=== PATIENT | male | born 1930 | race Caucasian/White ===

== ENCOUNTER 2016-03-29 07:09 | Inpatient (IN) ==
--- NOTE | 2016-03-29 07:53 | Emergency Department Note ---
Gianfranco Alcocer Meredith, am scribing for, and in the presence of, Jalen Aldridge MD 07: 50. Oly Alcocer James D, MD, personally performed the services described in this documentation, ascribed by Cherie Medel in my presence, and it is both accurate and complete 751 . Arrival - Arrival Chief Complaint: Urogenital - Male Stated Complaint: passing blood painful urination ED Nursing Triage Note: Pt c/o blood in urine with painful urination since yesterday. Mode of Arrival: Ambulatory Limitations: No Limitations Source: Patient, Old Records Reviewed, RN Notes Reviewed Time Seen by Provider: 03/29/16 07:21 - History of Present Illness HPI Narrative: Pt is an 85 y/o white male reporting to the ED with c/o dysuria, hematuria, nausea, and vomiting which onset yesterday. He denies any abdominal pain, fever , urinary retention, or passing clots. Family states that pt had a similar episode back in November and was diagnosed with a kidney infection. Pt states he called Dr. Sandra offive yesterday and had prescription for Levaquin called in. He had begun the Levaquin but states he is no better. He states that he was told by Dr. Sandra to come to the ED to be admitted. Pt has a history of HTN, HLD, and BPH. Onset (ago): day(s) Allergies/Adverse Reactions: Allergies Allergy/AdvReac Type Severity Reaction Status Date / Time Pork Allergy Verified 03/29/16 18:06 Home Medications: Home Medications Medication Instructions Recorded Confirmed Type Lisinopril 10 mg PO BID 11/14/15 03/29/16 History Simvastatin [Zocor] 20 mg PO BEDTIME 11/14/15 03/29/16 History Levofloxacin Tab [Levaquin Tab] 500 mg PO DAILY 03/29/16 03/29/16 History Acetaminophen Tab [Tylenol Tab] 650 mg PO Q4H PRN #0 tablet 03/31/16 Rx Dutasteride [Avodart] 0.5 mg PO DAILY capsule 03/31/16 Rx Review of System - Review of System 12 point system: reviewed and no additional remarkable complaints except as stated - Review of System Constitutional: Present: as per HPI. Absent: fever Gastrointestinal: Present: as per HPI, nausea, vomiting. Absent: abdominal pain Genitourinary male: Present: as per HPI, dysuria, hematuria, other (No urinary retetion or passing clots) Medical,Surgical,& Family Hx - Medical History Cardio: History of: Hypertension Endocrine: History of: Dyslipidemia Genitourinary: History of: Prostate Problems (BPH) - Social History Smoking Status: Never smoker Exam Physical Examination: GENERAL: This is a well-nourished, well-developed white male in no apparent distress. VITAL SIGNS: Temperature: 97.5, Pulse: 77, Respirations: 18, Blood pressure: 160 /62, O2 Saturation: 97 HEENT: Head is normocephalic and atraumatic. Pupils are equally round and reactive to light. Extraocular movement are intact. Oropharynx is benign with moist mucous membranes. NECK: Neck is soft and supple without tenderness. There are no masses. There is no lymphadenopathy. LUNGS: Lungs are clear to auscultation bilaterally. Chest rises symmetrically. There is no chest wall tenderness. CV: Heart is regular rate and rhythm without murmurs, rubs, or gallops. ABDOMEN: Abdomen is soft, non-tender to palpation. There are no abnormal masses palpated. There is no organomegaly. Bowel sounds are present and active. SKIN: Skin is warm and dry. No rash. EXTREMITIES: Patient has full range of motion without tenderness. There is no pedal edema. NEUROLOGIC: Awake, alert, and oriented x4. Cranial nerves II through XII are grossly intact. There are no motorsensory deficits. PSYCHIATRIC: Normal affect. Normal mood. Vital Signs: Vital Signs Temperature 97.5 F L 03/31/16 12:00 Pulse Rate 65 03/31/16 12:00 Respiratory Rate 18 03/31/16 12:00 Blood Pressure 139/71 03/31/16 12:00 O2 Sat by Pulse Oximetry 96 03/31/16 12:00 Course - Consultations Consultation #1: Discussed with Dr. Leodan Sandra. Time: 09:42 Results - Labs CBC & BMP: 03/30/16 06:08 03/30/16 06:08 Lab Results: I have reviewed the patients labs Labs: Laboratory Tests 03/29/16 07:33 Urine pH 7.0 Ur Specific Temperance 1.012 Urine RBC 76816 Urine WBC 231 Disposition Clinical Impression: Hematuria, BPH (benign prostatic hyperplasia) Case discussed with: patient Disposition: Still a Patient Condition: Stable New Prescriptions: Rx's Medication Instructions Recorded Acetaminophen Tab [Tylenol Tab] 650 mg PO Q4H PRN #0 tablet 03/31/16 Dutasteride [Avodart] 0.5 mg PO DAILY capsule 03/31/16
[2016-03-29 07:55] LABS: Apearance,Urine CLOUDY (Clear); Bilirubin,Urine Negative (Negative); Blood, Urine Moderate mg/dL (Negative); Glucose,Urine (UA) Negative (Negative); Ketones,Urine 20 mg/dL (Negative); Nitrite,Urine Negative (Negative); Protein,Urine 100 MG/DL; RBC,Urine 77098 /HPF (0-4); Urine Specific Gravity 1.012 (1.001-1.035); WBC,Urine 231 /HPF (0-6)
[2016-03-29 07:56] LABS: Urine Color Red (Yellow)
[2016-03-29 07:57] LABS: Bacteria,Urine Occasional /HPF (Few)
[2016-03-29 10:05] LABS: Basophils % 0.1 % (0.0-0.8); Eosinophils % 0.1 % (0.00-10.9); Hematocrit 32.8 VOL% (42.0-52.0); Hemoglobin 11.4 GM/DL (14.0-18.0); Immature Granulocytes % 0.4 %; Immature Granulocytes Absolute 0.04 #; Lymphocytes # 1.4 10*3/uL (1.4-4.0); Lymphocytes % 14.6 % (21.2-54.2); Mean Corpuscular HGB Conc 34.8 GM/DL (32-36); Mean Corpuscular Hemoglobin 31 PG (27-34); Mean Corpuscular Volume 88.2 FL (87-102); Mean Platelet Volume 9.9 FL (9.6-12.0); Monocytes # 0.5 10*3/uL (0.11-0.8); Monocytes % 5.4 % (1.7-12.7); Neutrophils # 7.5 10*3/uL (1.4-7.4); Neutrophils % 79.4 % (38.7-73.9); Platelet Count 234 10*3/uL (130-400); Red Blood Count 3.72 10*6/uL (3.8-5.5); Red Cell Distribution Width 11.9 % (9.3-17.3); White Blood Count 9.4 10*3/uL (4.5-13.71)
[2016-03-29 10:17] LABS: INR 1.1; PT Patient Result 11.2 SECS; Partial Thromboplastin Time 27.8 SECS (0-40)
[2016-03-29 10:29] LABS: Osmolality,Calculated 259.1 MOS/KG (273-304); Potassium 3.4 MMOL/L (3.5-5.1)
[2016-03-29] MEDS ORDERED: MEPERIDINE 50 MG/1 ML VIAL ONE (11:32)
[2016-03-29] MEDS ORDERED: PROMETHAZINE 25 MG/1 ML VIAL ONE (11:32)
[2016-03-29] MEDS ORDERED: MEPERIDINE 50 MG/1 ML VIAL IV STA (11:37)
[2016-03-29] MEDS ORDERED: PROMETHAZINE 25 MG/1 ML VIAL IM STA (11:39)
[2016-03-29] MEDS ORDERED: ONDANSETRON 4 MG/2 ML VIAL ONE (12:09)
[2016-03-29] MEDS ORDERED: HYDROmorphone 2 MG/1 ML VIAL ONE (12:09)
--- NOTE | 2016-03-29 12:56 | Urology History & Physical ---
Assessment and Plan - Time spent with patient Time spent with patient: Greater than 30 minutes (1) BPH (benign prostatic hyperplasia) Status: Acute Assessment and plan: Provider: Nugent drainage. Hand irrigated when necessary he has some electrolyte abnormalities need to be corrected. I will order a CT urogram he will need cystoscopy before he leaves the hospital. We will consult medicine. Current Visit: Yes (2) Hematuria Status: Acute Current Visit: Yes 12 point system: reviewed and no additional remarkable complaints except as stated History of Present Illness Chief complaint: hematuria History of present illness: Mr. Wilson is a 85 year old male who is well known to me. She had history of gross hematuria in the past. He developed the gross hematuria yesterday and she is and we got him off his feet. It became worse he presented himself to emergency room. I was involved in surgeries and Dr. Burt had come place a catheter. Apparently he had a stricture and had to be dilated. Now has a 20 [place] Nugent. In questioning the family he has not been taking his Avodart-like I thought he was. That explains hematuria. He has a very, very large prostate. He was found to have some electrolyte abnormalities with sodium of 128 and a potassium 3.4. He is being admitted to control the hematuria and a consul medicine for his electrolyte abnormalities. Home Medications Medication Instructions Recorded Confirmed Type Lisinopril 10 mg PO BID 11/14/15 03/29/16 History Simvastatin [Zocor] 20 mg PO BEDTIME 11/14/15 03/29/16 History Phenazopyridine HCl [Azo Urinary 97.5 mg PO Q12H PRN 03/29/16 03/29/16 History Pain Relief] Allergies Allergy/AdvReac Type Severity Reaction Status Date / Time No Known Allergies Allergy Verified 11/14/15 08:14 Medical,Surgical,& Family Hx - Medical History Cardio: History of: Hypertension Endocrine: History of: Dyslipidemia Genitourinary: History of: Prostate Problems (BPH), Problems (multiple episodes of gross hematuria) - Social History Smoking Status: Never smoker Exam - Constitutional Vitals: Period Temp Pulse Resp BP Sys/Canales Pulse Ox Last 24 Hr 97.5 F-97.5 F 64-77 18-20 160-164/62-70 96-97 General appearance: no acute distress - Head Head exam: Present: normal inspection - Respiratory Respiratory exam: Present: clear to auscultation bilaterally - Cardiovascular Cardiovascular exam: Present: regular rate and rhythm - GI/Abdominal GI/Abdominal exam: Present: normal bowel sounds, tenderness (the suprapubic) - Genitourinary Genitourinary: scrotum without lesions, cysts, edema or rash, penis with no lesions or discharge (Nugent catheter in place), diffusely enlarged prostate without tenderness Results - Labs CBC & BMP: 03/29/16 09:51 03/29/16 09:51
[2016-03-29] MEDS ORDERED: HYDROmorphone 2 MG/1 ML VIAL IV STA (13:09)
[2016-03-29] MEDS ORDERED: ONDANSETRON 4 MG/2 ML VIAL IV STA (13:10)
--- NOTE | 2016-03-29 13:23 | Urology Progress Note ---
Urology - PN: Subj Interval history: This 85-year-old white male is a patient of Dr. Sandra and was seen for him is because he was tied up in surgery. The patient was seen in urinary retention with gross hematuria in the ER personnel were not able to pass a Nugent catheter. The patient was given 25 mg of Phenergan and 50 mg of Demerol IV. The patient was then dilated to 22 Kazakh with mello and Boaz followers. 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 This was then removed and a 20 Nugent was inserted and a large amount of dark urine was drained. This was left on gravity drainage and the patient remained in the emergency room until seen by Dr. Sandra. Exam - Constitutional Vitals: Period Temp Pulse Resp BP Sys/Canales Pulse Ox Last 24 Hr 97.5 F-97.5 F 64-77 18-20 160-164/62-70 96-97 Results - Labs CBC & BMP: 03/29/16 09:51 03/29/16 09:51
[2016-03-29] MEDS ORDERED: DUTASTERIDE 0.5 MG CAPSULE PO SCH (13:30)
--- NOTE | 2016-03-29 13:34 | Hospitalist Consult Note ---
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 Gross hematuria recurrent. Current Visit: Yes (2) Hypertension Status: Chronic Assessment and plan: Minimal medical therapy, current electrolytes likely reflect overnight emesis. Current Visit: Yes History of Present Illness - Consult Narrative History of present illness: Mr. Wilson is a 85 year old male chronic prostatism with remote TURP, had developed gross hematuria in November. Had not complied with use of Avodart, and yesterday developed suprapubic pain, voiding difficulty with recurrent gross hematuria. He is current residually sedated after placement of Nugent catheter requiring dilatation of stricture for passage. Family is available. He is generally in good health independent treated only for hypertension and elevated cholesterol level. With this episode he has not been able to tolerate oral intake, but typically eats well, and has had emesis. CC: - Home Medications and Allergies Home Medications: Home Medications Medication Instructions Recorded Confirmed Type Lisinopril 10 mg PO BID 11/14/15 03/29/16 History Simvastatin [Zocor] 20 mg PO BEDTIME 11/14/15 03/29/16 History Phenazopyridine HCl [Azo Urinary 97.5 mg PO Q12H PRN 03/29/16 03/29/16 History Pain Relief] Allergies/Adverse Reactions: Allergies Allergy/AdvReac Type Severity Reaction Status Date / Time No Known Allergies Allergy Verified 11/14/15 08:14 Medical,Surgical,& Family Hx - Medical History Cardio: History of: Hypertension (10 years) Endocrine: History of: Dyslipidemia Genitourinary: History of: Prostate Problems (BPH, history of TURP), Problems (multiple episodes of gross hematuria) - Surgical History Reproductive Surgeries: Surgical HX of;: Prostate Surgery - Social History Smoking Status: Never smoker ROS unobtainable: other (due to procedure related sedation) Exam - Constitutional Vitals: Period Temp Pulse Resp BP Sys/Canales Pulse Ox Last 24 Hr 97.5 F-97.5 F 64-77 18-20 160-164/62-70 96-97 General appearance: normal weight - Neck Neck exam: Absent: lymphadenopathy, thyromegaly - Respiratory Respiratory exam: Present: clear to auscultation bilaterally. Absent: rales, rhonchi, wheezes - Cardiovascular Cardiovascular exam: Present: regular rate and rhythm, systolic murmur (6 apical murmur) - GI/Abdominal GI/Abdominal exam: Present: normal bowel sounds. Absent: ascites, distended, mass, organomegaly, tenderness - Extremities Exam Extremities exam: Absent: edema - Neurological Exam Neurological exam: Present: other (sedated) Results - Labs CBC & BMP: 03/29/16 09:51 03/29/16 09:51 Labs: Hemoglobin 12.6 and creatinine 1.3 in November 2015
[2016-03-29] MEDS ORDERED: PHENAZOPYRIDINE 95 MG TABLET PO PRN (15:33)
[2016-03-29] MEDS ORDERED: PROMETHAZINE 25 MG/1 ML VIAL IM PRN (15:33)
[2016-03-29] MEDS ORDERED: HYDROmorphone 2 MG/1 ML VIAL IV PRN (15:33)
[2016-03-29] MEDS ORDERED: ACETAMINOPHEN 325 MG TABLET PO PRN (15:33)
[2016-03-29] MEDS ORDERED: ONDANSETRON 4 MG/2 ML VIAL IV PRN (15:33)
[2016-03-29] MEDS: SODIUM CHLORIDE 0.45% 1,000 ML IV SCH (16:12)
[2016-03-29] MEDS: DUTASTERIDE 0.5 MG CAPSULE PO SCH (16:24)
[2016-03-29] MEDS: LISINOPRIL 10 MG TABLET PO SCH (21:10)
[2016-03-29] MEDS: SIMVASTATIN 20 MG TABLET PO SCH (21:10)
[2016-03-30] MEDS: SODIUM CHLORIDE 0.45% 1,000 ML IV SCH ×2 (05:47→18:12)
[2016-03-30 06:46] LABS: Basophils % 0.1 % (0.0-0.8); Eosinophils # 0.1 10*3/uL (0.0-0.87); Eosinophils % 0.5 % (0.00-10.9); Hematocrit 29.4 VOL% (42.0-52.0); Immature Granulocytes % 0.4 %; Immature Granulocytes Absolute 0.04 #; Lymphocytes # 1.7 10*3/uL (1.4-4.0); Lymphocytes % 15.7 % (21.2-54.2); Mean Corpuscular Hemoglobin 31 PG (27-34); Mean Corpuscular Volume 90.7 FL (87-102); Mean Platelet Volume 10.1 FL (9.6-12.0); Monocytes # 0.9 10*3/uL (0.11-0.8); Neutrophils # 7.8 10*3/uL (1.4-7.4); Neutrophils % 74.3 % (38.7-73.9); Platelet Count 195 10*3/uL (130-400); Red Blood Count 3.24 10*6/uL (3.8-5.5); Red Cell Distribution Width 12.2 % (9.3-17.3); White Blood Count 10.5 10*3/uL (4.5-13.71)
[2016-03-30 07:16] LABS: Calcium 8.4 MG/DL (8.5-10.1); Osmolality,Calculated 271.1 MOS/KG (273-304); Potassium 3.9 MMOL/L (3.5-5.1)
[2016-03-30] MEDS ORDERED: LIDOCAINE 2% TOP JELLY 20 ML VIAL INTRAURETH ONE (08:36)
--- NOTE | 2016-03-30 08:44 | CT Report ---
CT urogram Indication: Hematuria. CT ABDOMEN AND PELVIS WITH AND WITHOUT CONTRAST, UROGRAM PROTOCOL DLP: 1168 mGy*cm Comparison: 02/03/14 Technique: Axial CT images of the abdomen and pelvis were obtained pre-and post IV contrast administration. Omnipaque 350, 100 cc. Post contrast imaging was performed during the arterial phase, venous phase and urinary excretory phase. 3-d MIPS and multiplanar reformatted images of the urinary collecting system were provided. Urinary System: Precontrast imaging shows persistent IV contrast in the urinary collecting system, diluted. No urolithiasis shown. 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 Urinary bladder is decompressed with a Nugent catheter, and there is hyperdense material in the bladder consistent with old contrast on the tmd teacher assistant series. Bladder wall is thickened. 13 mm hypodensity arising from the left kidney and a 14 mm hypodensity arising from the right kidney are fluid density and do not enhance. Similar fluid density cyst at the upper pole left kidney is present as well. No enhancing renal mass. Prompt bilateral urinary excretion noted on the delayed images. Ureters are smoothly contoured. Multiple bladder diverticula are shown on the excretion series. The prostate is severely enlarged measuring 73 x 56 mm with a central defect similar to the previous exam. Abdomen: Mild cardiomegaly noted. Interstitial scarring lung bases is more pronounced than previous. Liver, gallbladder, spleen, pancreas and adrenal glands are unremarkable. No bowel obstruction. Pelvis: Diverticulosis of the colon noted, without active diverticulitis. No lymphadenopathy, free fluid or free air. Patient is osteopenic with degenerative changes of lumbar spine. Impression: 1. Since 2013, no urolithiasis, renal mass, or ureter mass has developed. 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 3 enlarging renal cysts are present, 2 on the left kidney and one on the right, largest 14 mm. Severe prostatism with central defect suggesting prior TURP, and numerous bladder diverticulum appear stable. Nugent catheter noted with bladder wall thickening. Suspect cystitis. 2. Diverticulosis without diverticulitis. 3. 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 4. Cardiomegaly. PROCEDURE INTERPRETED AT [facility] DEPARTMENT OF RADIOLOGY Final Report Signed by: Raúl Squires M.D.
[2016-03-30] MEDS ORDERED: LISINOPRIL 10 MG TABLET PO SCH (09:00)
--- NOTE | 2016-03-30 09:25 | Operative Note ---
Date of procedure: 03/30/16 Pre-op diagnosis: BPH, gross hematuria Post-op diagnosis: same Procedure: 85-year-old gentleman is well known to me previous TUR. Gross hematuria massively enlarged prostate he was supposed to be taking Avodart but wasn't. And now he is admitted the hospital had to be dilated put a catheter in. His urine cleared up. CT urogram shows no stones or masses in the kidney. There are a few cysts. Lower tract shows some clot in his bladder but nothing suggesting cancer and a massively enlarged prostate with TUR defect is now brought in for cystoscopy. Patient brought to endoscopy prepared and draped using sterile manner. Xylocaine jelly recent bladder for anesthesia. Flexible 16 [place]i cystourethroscope specimen admission. Urethra reveals a stricture in the bulbar urethra. Prostate is open. Bladder neck is open. Bladder shows a few old clots no active bleeding. There are some veins in the prostate that one of bleed. Bladder is clear. There are some diverticulum in the bladder and ureteral orifices normal clear efflux. The cystoscope removed. [place] sounds were used to dilate the urethra to 20 [place]i. Patient tolerates procedure well. I plan leaving the Nugent out. He was sent to his room in good condition. Anesthesia: local Surgeon / Physician: Leodan Sandra Estimated blood loss: other (5cc) Specimens: none sent Condition: stable Disposition: floor Results - Labs CBC & BMP: 03/30/16 06:08 03/30/16 06:08 Discharge Plan - Discharge Medications No Action Simvastatin [Zocor] 20 mg PO BEDTIME Lisinopril 10 mg PO BID Phenazopyridine HCl [Azo Urinary Pain Relief] 97.5 mg PO Q12H PRN PRN Reason: URINARY PAIN Levofloxacin Tab [Levaquin Tab] 500 mg PO DAILY - Follow Up or Referral - Forms/Instructions
[2016-03-30] MEDS: DUTASTERIDE 0.5 MG CAPSULE PO SCH (10:28)
[2016-03-30] MEDS: LISINOPRIL 10 MG TABLET PO SCH ×2 (10:28→20:31)
[2016-03-30] MEDS: LEVOFLOXACIN 500 MG TABLET PO SCH (10:28)
--- NOTE | 2016-03-30 10:32 | Hospitalist Progress Note ---
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 Gross hematuria recurrent. Current Visit: Yes (2) Hypertension Status: Chronic Assessment and plan: Minimal medical therapy, electrolytes self corrected with cessation of emesis. Current Visit: Yes Hospitalist: Subjective Interval history: 85 yo male presenting with obstructive urinary symptoms with gross hematuria. Required urethral dilatation for Nugent passage yesterday and earlier today had cystoscopy. CT shows patient urologic picture stable and no evidence of malignancy etc. Nugent removed and patient voiding. Feels well this morning and vitals stable overnight. Exam - Constitutional Vitals: Period Temp Pulse Resp BP Sys/Canales Pulse Ox Last 24 Hr 97.3 F-99.5 F 53-88 17-20 101-162/47-87 92-98 General appearance: normal weight - Respiratory Respiratory exam: Present: clear to auscultation bilaterally. Absent: rales, rhonchi, wheezes - Cardiovascular Cardiovascular exam: Present: regular rate and rhythm - GI/Abdominal GI/Abdominal exam: Present: normal bowel sounds. Absent: tenderness - Neurological Exam Neurological exam: Present: alert, oriented X3 Results - Labs CBC & BMP: 03/30/16 06:08 03/30/16 06:08
[2016-03-30] MEDS: SIMVASTATIN 20 MG TABLET PO SCH (20:32)
[2016-03-31] MEDS: LISINOPRIL 10 MG TABLET PO SCH (09:30)
[2016-03-31] MEDS: LEVOFLOXACIN 500 MG TABLET PO SCH (09:30)
[2016-03-31] MEDS: DUTASTERIDE 0.5 MG CAPSULE PO SCH (09:30)
[2016-03-31] MEDS: SODIUM CHLORIDE 0.45% 1,000 ML IV SCH (09:31)
--- NOTE | 2016-03-31 11:00 | Hospitalist Progress Note ---
<Aileen Clark N - Last Filed: 03/31/16 10:55> Assessment and Plan (1) BPH (benign prostatic hyperplasia) Status: Acute Assessment and plan: managed by Dr. Sandra, post urethral dilation Current Visit: Yes (2) Hematuria Status: Acute Assessment and plan: resolved, IV fluids D/C, continue good PO hydration Current Visit: Yes (3) Hypertension Status: Chronic Assessment and plan: managed well with home BP meds cleared for discharge from Hospital medicine Current Visit: Yes Hospitalist: Subjective Interval history: Mr. Wilson states he is doing much better this morning. he is voiding without difficulty, without pain and no hematuria noted in urinal. He has had about 800cc of sandy urine out this morning. He states he wants to go home. that will be up to Dr. Sandra. His IV was lost this morning, we will hold off on restarting this and D/C his IV fluids but have encouraged him to continue pushing PO hydration with water. He is agreeable. His BP is stable this morning, labs WNL and afebrile. He is cleared from discharge from our standpoint. Exam - Constitutional Vitals: Period Temp Pulse Resp BP Sys/Canales Pulse Ox Last 24 Hr 97.6 F-99.2 F 70-79 16-20 115-136/45-74 90-97 General appearance: no acute distress - Head Head exam: Present: normal inspection, normocephalic - Eye Eye exam: Present: EOMI. Absent: scleral icterus Pupils: Present: SAIRA, normal accommodation - ENT ENT exam: Present: normal exam, normal oropharynx - Neck Neck exam: Present: normal inspection. Absent: lymphadenopathy - Respiratory Respiratory exam: Present: clear to auscultation bilaterally. Absent: wheezes - Cardiovascular Cardiovascular exam: Present: regular rate and rhythm. Absent: tachycardia - GI/Abdominal GI/Abdominal exam: Present: normal bowel sounds, soft. Absent: tenderness - Extremities Exam Extremities exam: Present: normal inspection, full ROM. Absent: edema - Back Exam Back exam: Present: normal inspection. Absent: muscle spasm - Neurological Exam Neurological exam: Present: alert, oriented X3 - Psychiatric Psychiatric exam: Present: normal affect, normal mood - Skin Skin exam: Present: normal color, warm, dry Results - Labs CBC & BMP: 03/30/16 06:08 03/30/16 06:08 Lab Results: I have reviewed the past 24 hour labs <AkhilMagia R - Last Filed: 03/31/16 13:49> Assessment and Plan (1) BPH (benign prostatic hyperplasia) Status: Acute Assessment and plan: continue medication Current Visit: Yes (2) Hypertension Status: Chronic Assessment and plan: Controlled Current Visit: Yes (3) Hematuria Status: Acute Assessment and plan: Agree with above Current Visit: Yes Hospitalist: Subjective Interval history: Patient seen and examined. Progress note reviewed and agree with findings. Patient going home today and blood pressure controlled Exam - Constitutional Vitals: Period Temp Pulse Resp BP Sys/Canales Pulse Ox Last 24 Hr 97.5 F-99.2 F 65-77 16-18 117-139/45-71 90-97 Results - Labs CBC & BMP: 03/30/16 06:08 03/30/16 06:08
[2016-03-31 12:30] VITALS: BP 139/71
--- NOTE | 2016-03-31 13:38 | Discharge Summary ---
Hospital Course - Hospital Course Hospital Course: Patient is well known to me. Developed gross hematuria was seen in the emergency room. I previously given him Levaquin. He required urethral dilatation and a catheter was placed. His hematuria resolved with Nugent drainage and a 5 alpha reductase treatment. His urine is clear. I cystoscoped him yesterday. The bladder is normal. We dilated his stricture again. CT scan showed normal upper tracts. His maximal hospital benefit will be discharged. He tells me that he will take his Avodart. Minimal activity. The days and then he may resume normal activity. He will call me for any problems. - Time spent with patient Time with patient DS: Greater than 30 minutes Diagnosis - Discharge Diagnosis (1) BPH (benign prostatic hyperplasia) Status: Acute (2) Hematuria Status: Acute Discharge Plan - Discharge Data Disposition: Disch To Home/Self Care Condition at Discharge: Stable Discharge Diet: regular diet Activity: other (minimal for 2 days then resume normal activity) Hygiene: no restrictions Weight Bearing at Discharge: full weight bearing Driving: not until seen by doctor (not for the next 2 days) Contact your physician if you experience:: fever over 101, Difficulty voiding, Bleeding - Discharge Medications New Acetaminophen Tab [Tylenol Tab] 650 mg PO Q4H PRN #0 tablet PRN Reason: Temp > 101 or Headache Dutasteride [Avodart] 0.5 mg PO DAILY capsule Continue Simvastatin [Zocor] 20 mg PO BEDTIME Lisinopril 10 mg PO BID Levofloxacin Tab [Levaquin Tab] 500 mg PO DAILY Discontinued Phenazopyridine HCl [Azo Urinary Pain Relief] 97.5 mg PO Q12H PRN PRN Reason: URINARY PAIN - Follow Up or Referral - Forms/Instructions Exam - Constitutional Vitals: Period Temp Pulse Resp BP Sys/Canales Pulse Ox Last 24 Hr 97.5 F-99.2 F 65-77 16-18 117-139/45-71 90-97 DS: Provider Date of admission: 03/29/16 09:55 Primary care physician: . No PCP Attending physician on admission: Leodan Sandra MD Consults: 03/29/16 15:33 Consult to Physician [CONS] Routine Comment: electrolyte abnormalities Consulting Provider: Marychuy Landaverde Consult to Specialist Group: Urology When should Consulting Provider be notified: Now Consult Notification Comment: talked to Dr Landaverde at 1610, she said that it would go to the Dr getting the next pt will get, she said that she would call Aileen SHELL, and have her call us on the floor. 03/29/16 15:42 Consult to Pharmacy [CONS] Routine Reason for Pharmacy Consult: Adjust Meds Renal Funct Discharging clinician: Leodan Sandra MD
== END 2016-03-31 14:43 | disposition home or self-care (01) | DRG 726 ==
LOC: N.ED 07:09 → N.EDINP 09:55 → N.5E 14:18
PROVIDERS: ADMIT Urology; ATTEND Urology